=== PATIENT | male | born 1970 | race African-American/Black ===

== ENCOUNTER 2018-06-16 10:02 | Emergency (ER) | payer OTHER ==
[~2018-06-16] VITALS: Ht 177.8 cm; Wt 122.7 kg
[2018-06-16] MEDS ORDERED: LISI-661 PO (10:10)
[2018-06-16] MEDS ORDERED: CALC-877 PO (10:10)
[2018-06-16] MEDS ORDERED: METO25 PO (10:10)
[2018-06-16] MEDS ORDERED: GABA-529 PO (10:10)
[2018-06-16 10:18] LABS: GLUCOSE,POINT OF CARE 490 MG/DL (70-110)
[2018-06-16] MEDS ORDERED: SODIUM CHLORIDE 0.9% 1,000 ML IV ONE (10:45)
[2018-06-16] MEDS ORDERED: SODIUM CHLORIDE 0.9% 500 ML IV ONE ×2 (11:00→11:13)
[2018-06-16] MEDS ORDERED: INSULIN REGULAR, HUMAN 100 UNITS/ML IVP ONE (11:00)
[2018-06-16 11:31] LABS: BASOPHILS % (AUTO) 1.1 % (0.0-2.0); EOSINOPHILS % (AUTO) 7.6 % (1.0-6.0); HEMATOCRIT 29.3 % (41-53); HEMOGLOBIN 9.9 g/dL (13.5-17.5); LYMPHOCYTES # (AUTO) 1.1 K/uL (1.0-4.8); LYMPHOCYTES % (AUTO) 22.5 % (22.0-44.0); MEAN CORPUSCULAR HEMOGLOBIN 32.8 pg (26.0-34.0); MEAN CORPUSCULAR HGB CONC 33.7 G/dL (31.0-37.0); MEAN CORPUSCULAR VOLUME 97 fL (80-100); MONOCYTES # (AUTO) 0.5 K/uL (0.1-1.0); MONOCYTES % (AUTO) 10.4 % (2.0-9.0); NEUTROPHILS # (AUTO) 2.7 K/uL (1.8-7.7); NEUTROPHILS % (AUTO) 58.4 % (40.0-70.0); PLATELET COUNT (AUTO) 227 K/uL (150-450); RED BLOOD CELL COUNT(AUTO) 3.01 MIL/uL (4.50-5.90); RED CELL DISTRIBUTION WIDTH 15.8 % (11.5-14.5)
[2018-06-16 11:40] LABS: ABG A-A DIFF O2 56.5 mmHg (10-20.0); ABG BASE EXCESS 3.9 mmol/L (-2.0-3.0); ABG CARBOXYHEMOGLOBIN 1.1 % (0.0-1.5); ABG HCO3 27.2 mmol/L (22.0-26.0); ABG METHEMOGLOBIN 0.3 % (0.0-1.5); ABG OXYGEN CONTENT 11.2 mL/dL (15.0-23.0); ABG OXYHEMOGLOBIN 74.9 % (94.0-100.0); ABG PCO2 44 mmHg (35-45); ABG PH 7.426 (7.35-7.450); ABG TOTAL HEMOGLOBIN 10.6 G/dL (12.0-18.0); SOURCE, BLOOD GAS ARTERIAL; TEMPERATURE, FAHRENHEIT, BG 98.6 FAHREN (96.0-98.6)
[2018-06-16 11:43] LABS: PO2, ARTERIAL BG 40.5 mmHg (88.0-96.0)
[2018-06-16 11:44] LABS: O2 DEVICE,BLOOD GAS ROOM AIR (ROOM AIR); SITE, BLOOD GAS RT RADIAL
[2018-06-16] MEDS ORDERED: DiphenhydrAMINE HCL 50 MG/ML VIAL IVP ONE (11:45)
[2018-06-16 11:49] LABS: ALANINE AMINOTRANSFERASE 20 U/L (12-78); ALBUMIN 3.4 g/dL (3.4-5.0); ALKALINE PHOSPHATASE 60 U/L (46-116); ANION GAP 11 mmol/L (8-16); ASPARTATE AMINOTRANSFERASE 18 U/L (15-37); BILIRUBIN,TOTAL 0.3 mg/dL (0.1-1.0); CALCIUM, TOTAL 9.1 mg/dL (8.8-10.5); CARBON DIOXIDE 29 mmol/L (22-29); CHLORIDE 94 mmol/L (98-107); GLOMERULAR FILTR. RATE CALC 8 mL/min (>60); LIPASE 166 U/L (73-393); POTASSIUM 4.3 mmol/L (3.5-5.1); SODIUM SERUM 134 mmol/L (136-145); UREA NITROGEN, BLOOD 40 mg/dL (7-18)
[2018-06-16 11:54] LABS: GLUCOSE,RANDOM 470 mg/dL (70-110)
[2018-06-16 11:56] LABS: LACTIC ACID 1.4 mmol/L (0.4-2.0)
[2018-06-16 13:14] LABS: GLUCOSE,POINT OF CARE 138 MG/DL (70-110)
[2018-06-16 13:30] LABS: B-TYPE NATRIURETIC PEPTIDE 603 pg/mL (0-100)
[2018-06-16 13:39] LABS: GLUCOSE,POINT OF CARE 152 MG/DL (70-110)
[2018-06-16 14:00] VITALS: BP 161/83
== END 2018-06-16 14:30 | disposition home or self-care (01) ==
LOC: EMS 10:03
DX: E11.65 Type 2 diabetes mellitus with hyperglycemia (principal); I12.0 Hypertensive chronic kidney disease with stage 5 chronic kidney disease or end stage renal disease; E11.22 Type 2 diabetes mellitus with diabetic chronic kidney disease; N18.6 End stage renal disease; Z99.2 Dependence on renal dialysis
CPT/HCPCS: 36415; 71045; 80053; 82805; 82948; 82962; 83605; 83690; 83880; 84484; 85025; 93005; 96361; 96374; 96375; 99285; G0480; J1200; J1815; J7040